=== PATIENT | female | born 2000 | race Two or more races ===

== ENCOUNTER 2024-01-01 12:52 | Emergency (ER) | payer MEDICAID, SELFPAY ==
[2024-01-01 13:21] VITALS: BP 116/78; PULSE 78; RESP 18; TEMP 36.6; O2SAT 98; BMI 30.9
--- NOTE | 2024-01-01 13:46 | PD.EDRME ---
Rapid Medical Screening Exam RME Arrival date/time: 01/01/24 12:52 23-year-old female sent over to the emergency department by her PCP for possible abnormal potassium and sodium. Patient is asymptomatic. I have greeted and performed a focused initial assessment of this patient. Initial appropriate labs ordered at this time. A comprehensive ED assessment and evaluation of the patient and analysis of all test and completion of medical decision making process will be conducted by additional ED provider. Chief Complaint: Recheck/Abnormal Lab/Rx Time Seen by Provider: 01/01/24 13:08 Vital signs: Vital Signs Temperature 98 F 01/01/24 13:21 Pulse Rate 78 01/01/24 13:21 Respiratory Rate 18 01/01/24 13:21 Blood Pressure 116/78 01/01/24 13:21 Pulse Oximetry (%) 98 01/01/24 13:21 Oxygen Delivery Method Room Air 01/01/24 13:21
[2024-01-01 14:31] LABS: Collection Type, Urine Clean Catch
[2024-01-01 14:34] LABS: Basophils % (Auto) 0 % (0-2.5); Eosinophils # (Auto) 0.1 Thou/mm3 (0.0-0.5); Eosinophils % (Auto) 1 % (0-10); Hematocrit 40.1 % (36.0-46.0); Immature Granulocytes % (Auto) 0 % (0-0); Immature Granulocytes Auto 0.02 Thou/mm3 (0.00-0.00); Lymphocytes # (Auto) 2.1 Thou/mm3 (1.0-4.8); Lymphocytes % (Auto) 25 % (10-50); Mean Corpuscular HGB Conc 32.4 g/dl (31.0-37.0); Mean Corpuscular Hemoglobin 26.4 pg (25.0-35.0); Mean Corpuscular Volume 81 fL (80-100); Monocytes # (Auto) 0.6 Thou/mm3 (0.0-0.8); Monocytes % (Auto) 8 % (0-12); Neutrophils # (Auto) 5.4 Thou/mm3 (1.8-7.7); Neutrophils % (Auto) 65 % (37-80); Nucleated Red Blood Cell % 0 /100 WBC (0); Platelet Count 336 Thou/mm3 (140-440); RDW Standard Deviation 39.3 fL (36.4-46.3); Red Blood Count 4.93 Miln/mm3 (4.00-5.20); White Blood Count 8.2 Thou/mm3 (3.6-11.0)
[2024-01-01 14:44] LABS: HCG Qualitative,Urine Negative
[2024-01-01 14:54] LABS: Alanine Aminotransferase 14 U/L (10-49); Albumin, Serum 4.7 gm/dL (3.5-5.0); Albumin/Globulin Ratio 1.6 (1.2-2.2); Alkaline Phosphatase 91 U/L (46-116); Anion Gap 2 (7-16); Aspartate Amino Transferase < 8 U/L (0-34); BUN/Creatinine Ratio 15 Ratio (12-20); Bilirubin,Total 0.4 mg/dL (0.3-1.2); Blood Urea Nitrogen 9 mg/dL (9-23); Calcium 9.7 mg/dL (8.3-10.6); Calcium (Corrected) 9.7 mg/dL (8.5-10.1); Carbon Dioxide 26.9 mMol/L (20.0-31.0); Chloride 107 mMol/L (98-107); Creatinine (Component) 0.6 mg/dL (0.6-1.3); Globulin 2.9 gm/dL (2.3-3.5); Glucose 86 mg/dL (74-106); Osmolality,Calculated 269 (275-295); Potassium 4.2 mMol/L (3.4-5.1); Sodium 136 mMol/L (136-145); Total Protein 7.6 gm/dL (5.7-8.2); eGFR > 60 See Note
[2024-01-01 14:55] LABS: Bacteria,Urine Rare; Bilirubin,Urine Negative (Negative); Blood,Urine Negative (Negative); Clarity,Urine Clear (Clear/Hazy); Color,Urine Yellow (Lt Yel-Yel); Glucose, Urine Negative (Negative); Hyaline Casts,Urine < 1 /hpf (0-1); Ketones,Urine Negative (Negative); Leukocyte Esterase,Urine Negative (Negative); Nitrite,Urine Negative (Negative); PH,Urine 6.5 (5.0-7.0); Protein,Urine Negative (Neg - Trace); RBC,Urine 5 /hpf (0-3); Specific Gravity,Urine 1.024 (1.001-1.035); Squamous Epithelial Cell,Urine 1 /hpf (0-5); Urobilinogen,Urine Negative mg/dL (0.0-1.0); WBC,Urine 1 /hpf (0-5)
--- NOTE | 2024-01-01 15:53 | PD.EDRECHK ---
ED Recheck Abnl Lab Rx-RME/HPI General Chief Complaint: Recheck/Abnormal Lab/Rx Stated Complaint: ABNORMAL LABS, SENT BY [facility] Time Seen by Provider: 01/01/24 13:08 Source: patient Arrival date/time: 01/01/24 12:52 This is a 23-year-old female who presents to the emergency department was sent over by her PCP for possible abnormal sodium and potassium levels on her labs on outpatient. Patient reports she had routine labs done outpatient 2 days ago and was sent here for redraw. Patient is asymptomatic no complaints. Mode of arrival: ambulatory RME / HPI RME / HPI narrative: 01/01/24 12:52 23-year-old female sent over to the emergency department by her PCP for possible abnormal potassium and sodium. Patient is asymptomatic. I have greeted and performed a focused initial assessment of this patient. Initial appropriate labs ordered at this time. A comprehensive ED assessment and evaluation of the patient and analysis of all test and completion of medical decision making process will be conducted by additional ED provider. Related Data Home Medications ?Medication ?Instructions ?Recorded ?Confirmed vitamins-iron fumarate 65 1 tab PO QAM 05/16/22 08/05/22 mg iron-folic acid 1 mg tablet Allergies Allergy/AdvReac Type Severity Reaction Status Date / Time No Known Allergies Allergy Verified 01/01/24 12:54 Review of Systems Review of Systems Systems Reviewed: All systems reviewed, normal except as documented Narrative Review of Systems: Gen: No fever, no chills, no weight loss EYES: No discharge, no visual changes, no pain HEENT: No ear pain, no congestion, no sore throat PULM: No shortness of breath, no cough, no congestion CV: No chest pain, no dyspnea on exertion, no palpitations GI: No nausea, no vomiting, no diarrhea, no pain, no constipation : No frequency, no urgency,? no dysuria Musc/skel: No joint pain, no back pain Skin: No rash? Psyc: No hallucinations, no depression Heme/Lymph: No easy bleeding or bruising tendencies Neuro: No weakness, no headache ED Exam Narrative Physical exam: General: Sittiing in Exam table in no acute distress, answering questions appropriately HENT: normocephalic, atraumatic, EOMI, PERRLA, moist mucous membranes Chest: chest wall is nontender Cardiac: regular rate and rhythm, normal S1 and S2, no murmurs, rubs, or gallops, capillary refill ?2 seconds Pulmonary: clear to auscultation bilaterally, no wheezing, crackles, or rhonchi Abdominal: active bowel sounds, soft, nontender, nondistended Neuro: A&OX3, CN II-XII intact, sensation grossly intact bilaterally in UE and LE. Skin: no rashes, no ecchymosis Ext: no lower extremity edema Course Quality Measures none Orders Category Date Time Status CBC Stat Lab 01/01/24 13:52 Completed CMP [Comprehensive Metabolic Panel] Stat Lab 01/01/24 13:52 Completed HCG Qualitative,Urine Stat Lab 01/01/24 14:22 Completed Urinalysis Stat Lab 01/01/24 14:22 Completed Vital Signs Vital signs: Vital Signs Temperature 98 F 01/01/24 13:21 Pulse Rate 78 01/01/24 13:21 Respiratory Rate 18 01/01/24 13:21 Blood Pressure 116/78 01/01/24 13:21 Pulse Oximetry (%) 98 01/01/24 13:21 Oxygen Delivery Method Room Air 01/01/24 13:21 Recheck / Abnormal Lab / Rx Patient data External records reviewed:: [facility] previous records Clinical information provided by:: patient Social determinants that could affect healthcare access:: none Patient has the following chronic illnesses:: no How is presenting disease/condition affected by chronic disease/condition?: no chronic disease Evaluation data The following diagnostics were reviewed and interpreted by me:: lab results Lab and/or radiology exams considered but not ordered:: no Interpretation Summary: All labs reviewed normal potassium, noted normal sodium. Medications / Prescriptions Medications or Prescriptions considered but not ordered:: No Medication administrations:: None Consultations Consultation(s) initiated? (list below): No Diagnosis Recheck Differential Diagnosis: encounter for medication refill, encounter for recheck of burn and encounter for removal of sutures Most likely diagnosis given after review of the tests above:: Laboratory recheck. Normal Admission Indicated Admission indicated?: not indicated Admission Request Was there a request for admission?: No Disposition Plan Disposition Plan: Discharge Discharge Attestation Discharge Attestation: The patient and all family members were given an opportunity to ask questions and understood the discharge instructions. Discharge instructions specifically effects, indications for sooner follow up or return to the emergency department, and the expected course of current diagnosis. Patient condition: Stable Discharge Plan Plan Patient Disposition: HOME (Self Care) Patient condition on transfer: Stable Prescriptions/Referrals Prescriptions/Med Rec: No Action vit-iron fum-folic ac 65 mg iron- 1 mg Tablet 1 tab PO QAM Referrals: Rosangela Joyner PA-C [Primary Care Provider] - In 1 week Problem List Clinical Impression: Abnormal laboratory test Patient/Caregiver Discharge Instructions Discharge Activity: activity as tolerated Additional Instructions: Your recheck labs are completely normal. Please follow-up with your doctor as directed. Print Language: Malawian Stand Alone Forms: Jessi Award Info., Patient Portal Info Letter PA/BUSINESS SERVICES INTERN Supervising Physician PA/WENDY Supervising Physician: Dr Coy
== END 2024-01-01 16:31 | disposition home or self-care (01) ==
PROVIDERS: Nurse Practitioner Primary Care; Emergency Provider Emergency Medicine; PCP Family Medicine
DX: R79.9 Abnormal finding of blood chemistry, unspecified (principal)
CPT/HCPCS: 36415; 80053; 81001; 81025; 85025; 99283

== ENCOUNTER 2024-08-20 18:23 | Observation (INO) | payer MEDICAID, SELFPAY ==
[2024-08-20] VITALS (32 sets, daily range): BP systolic 117–125; BP diastolic 67–70; PULSE 102–127; RESP 18–98; TEMP 37.3–38.4; O2SAT 88–100; BMI 35.9
[2024-08-20] MEDS: RINGERS LACTATED 1000 ML 1,000 ML 999 ML IV (19:05)
--- NOTE | 2024-08-20 19:20 | XR_ITS ---
Examination: Complete OB ultrasound greater than 14 weeks Date and time of exam: 2024 hours INDICATIONS: Back pain and pelvic pain beginning 4 days ago Findings: Viable intrauterine single fetus with single amniotic sac presentation transverse Cardiac motion 147 BPM Placenta posterior grade 2 Umbilical cord insertion seen Amniotic fluid index 22.3 cm spine maternal right Services 5.5 cm Ovaries obscured by the fetus. Composite estimated gestational age based on BPD, head circumference, abdominal circumference, femur length is 33 weeks 2 days Estimated weight 2094 g. Survey of intracranial anatomy, spinal anatomy, abdominal anatomy, four-chamber heart performed with no abnormalities identified. Impression: Viable intrauterine gestation transverse presentation.
[2024-08-20 19:34] LABS: Collection Type, Urine Clean Catch
[2024-08-20 19:45] LABS: Basophils # (Auto) 0.0 Thou/mm3 (0.0-0.2); Basophils % (Auto) 0 % (0-2.5); Eosinophils # (Auto) 0.1 Thou/mm3 (0.0-0.5); Eosinophils % (Auto) 1 % (0-10); Hematocrit 25.6 % (36.0-46.0); Immature Granulocytes Auto 0.11 Thou/mm3 (0.00-0.00); Lymphocytes # (Auto) 1.7 Thou/mm3 (1.0-4.8); Lymphocytes % (Auto) 15 % (10-50); Mean Corpuscular HGB Conc 31.3 g/dl (31.0-37.0); Mean Corpuscular Hemoglobin 22.5 pg (25.0-35.0); Mean Corpuscular Volume 72 fL (80-100); Monocytes # (Auto) 1.2 Thou/mm3 (0.0-0.8); Monocytes % (Auto) 10 % (0-12); Neutrophils # (Auto) 8.7 Thou/mm3 (1.8-7.7); Neutrophils % (Auto) 73 % (37-80); Nucleated Red Blood Cell # 0.00 Thou/mm3 (0.00-0.00); Nucleated Red Blood Cell % 0 /100 WBC (0); Platelet Count 323 Thou/mm3 (140-440); RDW Standard Deviation 39.7 fL (36.4-46.3); Red Blood Count 3.56 Miln/mm3 (4.00-5.20); White Blood Count 11.9 Thou/mm3 (3.6-11.0)
[2024-08-20 19:55] LABS: Hemoglobin 8.0 g/dL (12.0-16.0)
[2024-08-20 20:08] LABS: Alanine Aminotransferase < 7 U/L (10-49); Albumin, Serum 3.8 gm/dL (3.5-5.0); Albumin/Globulin Ratio 1.5 (1.2-2.2); Alkaline Phosphatase 115 U/L (46-116); Anion Gap 13 (7-16); Aspartate Amino Transferase < 8 U/L (0-34); BUN/Creatinine Ratio 14 Ratio (12-20); Bilirubin,Total 0.4 mg/dL (0.3-1.2); Blood Urea Nitrogen 7 mg/dL (9-23); Calcium 8.7 mg/dL (8.3-10.6); Calcium (Corrected) 8.9 mg/dL (8.5-10.1); Carbon Dioxide 21.3 mMol/L (20.0-31.0); Chloride 107 mMol/L (98-107); Creatinine (Component) 0.5 mg/dL (0.6-1.3); Estimated Creatinine Clearance 185.4 mL/min (>60); Globulin 2.6 gm/dL (2.3-3.5); Glucose 105 mg/dL (74-106); Osmolality,Calculated 279 (275-295); Potassium 3.6 mMol/L (3.4-5.1); Sodium 141 mMol/L (136-145); Total Protein 6.4 gm/dL (5.7-8.2); eGFR > 60 See Note
[2024-08-20 20:15] LABS: Influenza A Ag Negative; Influenza B Ag Negative
[2024-08-20 20:23] LABS: COVID-19 Antigen (In-House) Negative (Negative)
[2024-08-20 20:23] LABS: Bacteria,Urine 4+; Bilirubin,Urine Negative (Negative); Blood,Urine Negative (Negative); Clarity,Urine Clear (Clear/Hazy); Color,Urine Yellow (Lt Yel-Yel); Glucose, Urine Negative (Negative); Ketones,Urine 3+ (Negative); Leukocyte Esterase,Urine Positive (Negative); Nitrite,Urine Negative (Negative); PH,Urine 6.0 (5.0-7.0); Protein,Urine Trace (Neg - Trace); RBC,Urine 6 /hpf (0-3); Specific Gravity,Urine 1.024 (1.001-1.035); Squamous Epithelial Cell,Urine 4 /hpf (0-5); Urobilinogen,Urine 3.0 mg/dL (0.0-1.0); WBC,Urine 53 /hpf (0-5)
[2024-08-20] MEDS: RINGERS LACTATED 1000 ML 1,000 ML 125 ML IV (22:25)
[2024-08-20] MEDS: cefTRIAXone 1,000 MG in SODIUM CHLORIDE 0.9% (Popper) 50 ML 100 MG IV (22:40)
--- NOTE | 2024-08-20 23:59 | PD.LDHP ---
Documentation for date of: 08/20/24 OB Labor/Induct. HPI History of Present Illness Chief complaint: Flank pain, fevers, pelvic pressure : 2 Para: 1 Term pregnancies: 1 pregnancies: 0 Living children: 1 History of Abortions: Spontaneous and Elective: 0 History of Vaginal deliveries: 1 History of sections: No History of : No Date of last menstrual period: 12/22/23 BARBARA: 10/08/24 Gestational Age (weeks): 33 Gestational age based on last menstrual period: 34 History of present illness: Patient is a 23-year-old -0-0-1 at 33 weeks estimated gestational age with all care uncomplicated with Dr Zapata who presented to triage this evening reporting fevers, chills and back pain. She stated it hurt on her right flank when she took a deep breath. She stated she felt pretty bad on Thursday but by Thursday she felt better and started feeling poorly again . In triage, her temperature was 101 ?F orally. A white count on her CBC was not significantly elevated and she did not have a left shift. Her urine,however, had numerous white cells, positive leukocyte esterase ,and 3+ bacteria. On physical exam, the patient was extremely tender in her right flank. She was admitted with a presumptive diagnosis of pyelonephritis. History of Present Dating criteria: LMP confirmed by 1st trimester US Adequate Care: Yes Ultrasounds: normal mid trimester US Obstetrical complications: none Medical complications: other (Patient has a history of a clot gastric sleeve and is extremely anemic with a hemoglobin of 8) Narrative: The patient required iron infusions last Labs Maternal Blood Type: A Pos Labs: Unknown: RPR, Hepatitis B, Rubella Titre, HIV, Chlamydia, Gonorrhea, Herpes Type 1, Herpes Type 2, Group Beta Strep and Covid-19 Narrative: Patient has had regular care with Dr Zapata. Since it is a Thursday, and she is only 33 weeks , no records are available to review. Review of Systems Review of Systems Narrative Review of Systems: Patient reports low-grade fevers, chills, fatigue, body aches, lower uterine pressure, and right sided back pain. She has some mild nausea. No diarrhea. Past Medical History Surgical History SURGICAL: Negative Section Past Medical History Comments PMH COMMENT: Patient has a history of a gastric sleeve in the past. She has been anemic with her last requiring iron infusions. She has a history of an uncomplicated vaginal delivery. Meds Home Medications and Allergies Home Medications ?Medication ?Instructions ?Recorded ?Confirmed ?Type vitamins-iron fumarate 65 1 tab PO QAM 05/16/22 08/20/24 History mg iron-folic acid 1 mg tablet ferrous sulfate 325 mg (65 mg 325 mg PO BID 08/20/24 08/20/24 History iron) tablet (FeroSul) Allergies Allergy/AdvReac Type Severity Reaction Status Date / Time No Known Allergies Allergy Verified 08/20/24 23:19 OB Exam Physical Exam Vital signs: Temp Pulse Resp BP Pulse Ox 99.2 F 111 H 18 117/67 98 08/20/24 22:41 08/20/24 22:06 08/20/24 22:41 08/20/24 22:06 08/20/24 22:46 Constitutional Constitutional: mild distress Comments: Patient is alert uncomfortable in the bed. She is cooperative and answers danny questions appropriately. Fundus is firm and nontender a back exam reveals right flank tenderness no left flank tenderness extremities show no significant edema. Pelvic exam deferred as patient is not suarabh. Routine Abdominal Exam Abdominal: Present soft Detailed Labor and Delivery Exam Membranes: intact monitor accelerations: 10x10 monitor decelerations: None jail variability: Moderate (11-25) Contraction frequency (min): None OB Results Labs 08/20/24 19:05 08/20/24 19:05 Labs: Short CBC 08/20/24 Range/Units 19:05 WBC 11.9 H (3.6-11.0) Thou/mm3 Hgb 8.0 L (12.0-16.0) g/dL Hct 25.6 L (36.0-46.0) % Plt Count 323 (140-440) Thou/mm3 BMP 08/20/24 19:05 Sodium 141 Potassium 3.6 Chloride 107 Carbon Dioxide 21.3 BUN 7 L Creatinine 0.5 L Glucose 105 Calcium 8.7 Liver Function 08/20/24 Range/Units 19:05 Total Bilirubin 0.4 (0.3-1.2) mg/dL AST < 8 (0-34) U/L ALT < 7 L (10-49) U/L Alkaline Phosphatase 115 (46-116) U/L Albumin 3.8 (3.5-5.0) gm/dL Urine 08/20/ Range/Units 19:05 Urine Color Yellow (Lt Yel-Yel) Urine Clarity Clear (Clear/Hazy) Urine pH 6.0 (5.0-7.0) Ur Specific [place] 1.024 (1.001-1.035) Urine Protein Trace (Neg - Trace) Urine Glucose (UA) Negative (Negative) OB Assessment & Plan Assessment and Plan (1) H/O gastric sleeve: Status: Acute (2) Anemia affecting : Status: Acute Assessment and plan: Encourage p.o. iron intake. (3) Pyelonephritis affecting in third trimester: Status: Acute Assessment and plan: Send urine culture. Start empirically on1 gm Rocephin every 12 hours. (2) Anemia affecting Qualifiers: Trimester: third trimester Qualified Code(s): O99.013 - Anemia complicating , third trimester
[2024-08-21] VITALS (17 sets, daily range): BP systolic 83–120; BP diastolic 49–64; PULSE 78–111; RESP 18; TEMP 36.6–37.7; O2SAT 98
[2024-08-21] MEDS: ACETAMINOPHEN 500 MG TABLET 1000 MG PO ×3 (00:28→20:28)
[2024-08-21] MEDS: RINGERS LACTATED 1000 ML 1,000 ML 125 ML IV ×2 (07:49→18:56)
--- NOTE | 2024-08-21 10:33 | PD.LDPN ---
Documentation for date of: 08/21/24 OB Labor Progress Note Pain Control Pain control: tolerating well Comments: Patient is a 23-year-old -0-0-1 at 33 weeks admitted with a pyelonephritis. Overnight she required tylenol x 1. Her last fever was in triage close to midnight at 99 degrees. She always needs IV iron infusions. She is on IV Rocephin. She reports good movement, no contractions, no loss of fluids. She feels better than and when she was admitted. Urine culture is still pending. Pelvic Exam Amniotic membrane status: Intact Contractions Monitor mode: External Contraction frequency: None Contraction intensity: Mild Status status: Category l Assessment and Plan Plan OB labor note: continuous present management Comments: Will continue IV Rocephin until sensitivities are back. I also ordered IV iron today and tomorrow as patient has a history of glass gastric sleeve and is anemic.
[2024-08-21] MEDS: cefTRIAXone 1,000 MG in SODIUM CHLORIDE 0.9% (Popper) 50 ML 100 MG IV ×2 (10:40→22:24)
[2024-08-21] MEDS: FERRIC SOD GLUC INJ 125 MG in SODIUM CHLORIDE 0.9% 100 ML 110 MG IV (11:30)
[2024-08-22] VITALS (62 sets, daily range): BP systolic 107–118; BP diastolic 61–66; PULSE 85–116; RESP 18–20; TEMP 36.6–37.9; O2SAT 92–100
[2024-08-22 05:24] LABS: Basophils # (Auto) 0.0 Thou/mm3 (0.0-0.2); Basophils % (Auto) 0 % (0-2.5); Eosinophils # (Auto) 0.2 Thou/mm3 (0.0-0.5); Eosinophils % (Auto) 1 % (0-10); Hematocrit 24.2 % (36.0-46.0); Immature Granulocytes Auto 0.17 Thou/mm3 (0.00-0.00); Lymphocytes # (Auto) 1.8 Thou/mm3 (1.0-4.8); Lymphocytes % (Auto) 15 % (10-50); Mean Corpuscular HGB Conc 31.0 g/dl (31.0-37.0); Mean Corpuscular Hemoglobin 22.5 pg (25.0-35.0); Mean Corpuscular Volume 73 fL (80-100); Monocytes # (Auto) 1.2 Thou/mm3 (0.0-0.8); Monocytes % (Auto) 10 % (0-12); Neutrophils # (Auto) 8.5 Thou/mm3 (1.8-7.7); Neutrophils % (Auto) 71 % (37-80); Nucleated Red Blood Cell # 0.02 Thou/mm3 (0.00-0.00); Nucleated Red Blood Cell % 0 /100 WBC (0); Platelet Count 286 Thou/mm3 (140-440); RDW Standard Deviation 40.6 fL (36.4-46.3); Red Blood Count 3.33 Miln/mm3 (4.00-5.20); White Blood Count 11.9 Thou/mm3 (3.6-11.0)
[2024-08-22 05:25] LABS: Hemoglobin 7.5 g/dL (12.0-16.0)
[2024-08-22] MEDS: RINGERS LACTATED 1000 ML 1,000 ML 125 ML IV ×3 (05:26→21:19)
[2024-08-22] MEDS: ACETAMINOPHEN 500 MG TABLET 1000 MG PO (05:35)
--- NOTE | 2024-08-22 07:54 | ESPR_ITS ---
Documentation for date of: 08/22/24 FLAP MAKER Subjective Subjective Interval history: Patient is a 23-year-old -0-0-1 at 33 weeks estimated gestational age with all care uncomplicated with Dr Zapata who presented to triage this evening reporting fevers, chills and back pain. She stated it hurt on her right flank when she took a deep breath. She stated she felt pretty bad on Thursday but by Thursday she felt better and started feeling poorly again . In triage, her temperature was 101 ?F orally. A white count on her CBC was not significantly elevated and she did not have a left shift. Her urine,however, had numerous white cells, positive leukocyte esterase ,and 3+ bacteria. On physical exam, the patient was extremely tender in her right flank. She was admitted with a presumptive diagnosis of pyelonephritis. Exam Vital Signs Temp Pulse Resp BP Pulse Ox 100.3 F 99 18 118/62 100 08/22/24 05:35 08/22/24 05:31 08/22/24 05:32 08/22/24 05:31 08/22/24 04:31 Narrative Exam Patient feels better with less flank pain. She denies any contractions leaking or bleeding. She is tolerating a regular diet. She is voiding without difficulty. She is passing flatus. Routine Respiratory Exam Comments: Clear to auscultation bilaterally Routine Cardiovascular Exam Comments: Regular rate and rhythm Routine Abdominal Exam Comments: Gravid, nontender Routine Back/Spine/Pelvis Exam Comments: CVA tenderness bilaterally Urinary Catheter Management Cath placed during this visit: no FLAP MAKER - PN: Obj Data Labs 08/22/24 05:12 08/20/24 19:05 Labs: Laboratory Results - last 24 hr 08/22/24 05:12 WBC 11.9 H RBC 3.33 L Hgb 7.5 L Hct 24.2 L MCV 73 L MCH 22.5 L MCHC 31.0 RDW Std Deviation 40.6 Plt Count 286 D Neut % (Auto) 71 Lymph % (Auto) 15 [facility] % (Auto) 10 Eos % (Auto) 1 Baso % (Auto) 0 Neut # (Auto) 8.5 H Lymph # (Auto) 1.8 [facility] # (Auto) 1.2 H Eos # (Auto) 0.2 Baso # (Auto) 0.0 Immature Gran # (Auto) 0.17 H Absolute Nucleated RBC 0.02 H Immature Gran % 1 H Nucleated RBC % 0 FLAP MAKER - A/P Assessment and plan (1) H/O gastric sleeve: Status: Acute (2) Anemia affecting : Status: Acute (3) Pyelonephritis affecting in third trimester: Status: Acute Assessment and plan: Continue IV antibiotics and until afebrile for 24 hours Opioid analgesia as necessary Time Spent With Patient Time: Total time spent is greater than 50% in coordination of care (as documented) at patient's floor/unit and/or counseling patient: Time with patient: 25 - 35 minutes
[2024-08-22] MEDS: FERROUS SULF 325 MG TABLET PO ×2 (08:15→21:22)
[2024-08-22] MEDS: cefTRIAXone 1,000 MG in SODIUM CHLORIDE 0.9% (Popper) 50 ML 100 MG IV ×2 (08:15→21:22)
[2024-08-22] MEDS: PRENATAL VITAMIN/FE FUM/FA TABLET 1 TAB PO (08:15)
[2024-08-22] MEDS: FERRIC SOD GLUC INJ 125 MG in SODIUM CHLORIDE 0.9% 100 ML 110 MG IV (09:03)
[2024-08-22] MEDS: ZOLPIDEM 5 MG TABLET PO (21:19)
[2024-08-23 00:24] VITALS: BP 117/62; PULSE 88
[2024-08-23 00:30] VITALS: BP 117/62; PULSE 88; RESP 18; TEMP 37.1
[2024-08-23 04:04] VITALS: BP 110/59; PULSE 102; RESP 18; TEMP 36.9
[2024-08-23] MEDS: RINGERS LACTATED 1000 ML 1,000 ML 125 ML IV (05:59)
--- NOTE | 2024-08-23 08:49 | PD.GYNPROG ---
Documentation for date of: 08/23/24 BUILDING CONSTRUCTION TEACHER Subjective Subjective Interval history: Patient is a 23-year-old -0-0-1 at 33 weeks estimated gestational age with all care uncomplicated with Dr Zapata who presented to triage this evening reporting fevers, chills and back pain. She stated it hurt on her right flank when she took a deep breath. She stated she felt pretty bad on Thursday but by Thursday she felt better and started feeling poorly again . In triage, her temperature was 101 ?F orally. A white count on her CBC was not significantly elevated and she did not have a left shift. Her urine,however, had numerous white cells, positive leukocyte esterase ,and 3+ bacteria. On physical exam, the patient was extremely tender in her right flank. She was admitted with a presumptive diagnosis of pyelonephritis. Patient has not been afebrile for the last 24 hours. She is slightly tachycardic but the rest of her vital signs are within normal limits Exam Vital Signs Temp Pulse Resp BP Pulse Ox 98.5 F 102 H 18 110/59 L 100 08/23/24 04:04 08/23/24 04:04 08/23/24 04:04 08/23/24 04:04 08/22/24 20:00 Constitutional Constitutional: no acute distress Routine HEENT Exam Head: Present normocephalic and atraumatic Eye: Present EOMI and PERRL ENT: Present mucous membranes moist Routine Neck Exam Neck: Present supple and trachea midline Routine Respiratory Exam Respiratory: Present chest non-tender, lungs clear, normal breath sounds and no resp distress Routine Cardiovascular Exam Cardiovascular: Present RRR Routine Abdominal Exam Abdominal: Present soft and normoactive bowel sounds Routine Extremities Exam Extremities: Present full ROM Routine Skin Exam Skin: Present intact and dry Routine Neurological Exam Neurological: Present alert, oriented X3 and CN II-XII intact Routine Psychiatric Exam Psychiatric: Present normal affect and normal thought process Urinary Catheter Management Cath placed during this visit: no BUILDING CONSTRUCTION TEACHER - PN: Obj Data Labs 08/22/24 05:12 08/20/24 19:05 BUILDING CONSTRUCTION TEACHER - A/P Assessment and plan (1) H/O gastric sleeve: Status: Acute (2) Anemia affecting : Status: Acute (3) Pyelonephritis affecting in third trimester: Status: Acute Assessment and plan: Patient is now 24 hours afebrile. Plan to discharge home today with oral antibiotics to follow-up with Dr Zapata in 7 days Time Spent With Patient Time: Total time spent is greater than 50% in coordination of care (as documented) at patient's floor/unit and/or counseling patient: Time with patient: less than 15 minutes
--- NOTE | 2024-08-23 08:50 | ESDS_ITS ---
DS: Providers Provider Date of admission: 08/20/24 18:23 Primary care physician: Physician No Primary/Family Admitting Provider: Radha Summers MD ([facility]) Attending Provider on Admission: Kaushal Song MD Attending Provider on DC: Kaushal Song MD Discharging Provider: Kaushal Song MD DS: Diagnosis Discharge Diagnosis (1) Pyelonephritis affecting in third trimester: Status: Acute (2) Anemia affecting : Status: Acute (3) H/O gastric sleeve: Status: Acute Problem List Completed Was Problem List Reviewed/Reconciled?: Yes Summary/Hosp Course Brief History: Patient is a 23-year-old -0-0-1 at 33 weeks estimated gestational age with all care uncomplicated with Dr Zapata who presented to triage this evening reporting fevers, chills and back pain. She stated it hurt on her right flank when she took a deep breath. She stated she felt pretty bad on Thursday but by Thursday she felt better and started feeling poorly again . In triage, her temperature was 101 ?F orally. A white count on her CBC was not significantly elevated and she did not have a left shift. Her urine,however, had numerous white cells, positive leukocyte esterase ,and 3+ bacteria. On physical exam, the patient was extremely tender in her right flank. She was admitted with a presumptive diagnosis of pyelonephritis. Patient has not been afebrile for the last 24 hours. She is slightly tachycardic but the rest of her vital signs are within normal limits Time Spent with Patient Time attestation: Total time spent providing and/or coordinating discharge services: Exam Vital Signs Temp Pulse Resp BP Pulse Ox 98.5 F 102 H 18 110/59 L 100 08/23/24 04:04 08/23/24 04:04 08/23/24 04:04 08/23/24 04:04 08/22/24 20:00 Discharge Plan Plan Patient Disposition: HOME (Self Care) Patient condition on transfer: Stable Prescriptions/Referrals Prescriptions/Med Rec: New amoxicillin-pot clavulanate 875-125 mg tablet 1 tab PO BID 7 Days Qty: 14 0RF hydrocodone-acetaminophen 5-325 mg tablet 1 tab PO Q6H MDD 4 PRN (Reason: pain) 5 Days Qty: 20 0RF Continued ferrous sulfate [FeroSul] 325 mg (65 mg iron) tablet 325 mg PO BID Patient Comments: take 1 tablet by mouth twice a day vit-iron fum-folic ac 65 mg iron- 1 mg Tablet 1 tab PO QAM Referrals: Yemi Zapata MD [Physician] - No Primary/Family,Physician [Primary Care Provider] - Patient/Caregiver Discharge Instructions Meds to Beds: Yes Education Materials: Urinary Tract Infections in Women Print Language: Montenegrin Stand Alone Forms: Jessi Award Info., Patient Portal Info Letter, Work/Release Restrictions Discharge Order Discharge Orders: Discharge (Routine); Ordered 08/23/24 Ordered By: Kaushal Song Planned Discharge Date 08/23/24 (2) Anemia affecting Qualifiers: Trimester: third trimester Qualified Code(s): O99.013 - Anemia complicating , third trimester
[2024-08-23 09:24] VITALS: BP 111/66; PULSE 97; RESP 16; TEMP 37
[2024-08-23] MEDS: FERROUS SULF 325 MG TABLET PO (09:33)
[2024-08-23] MEDS: PRENATAL VITAMIN/FE FUM/FA TABLET 1 TAB PO (09:34)
[2024-08-23] MEDS: cefTRIAXone 1,000 MG in SODIUM CHLORIDE 0.9% (Popper) 50 ML 100 MG IV (09:34)
== END 2024-08-23 10:36 | disposition home or self-care (01) ==
PROVIDERS: Admitting Provider Obstetrics & Gynecology; Visit Provider Obstetrics & Gynecology
DX: O23.03 Infections of kidney in pregnancy, third trimester (principal); O99.013 Anemia complicating pregnancy, third trimester; D64.9 Anemia, unspecified; Z3A.33 33 weeks gestation of pregnancy; O99.891 Other specified diseases and conditions complicating pregnancy; R00.0 Tachycardia, unspecified
CPT/HCPCS: 36415; 59025; 59899; 76805; 80053; 81001; 85025; 87077; 87086; 87186; 87502; 87811; 96361; 96365; 96366; J0696; J2916; J7050; J7120; A9270

== ENCOUNTER 2024-09-05 09:00 | Outpatient (RCR) | payer MEDICAID, SELFPAY ==
[2024-08-24 09:30] VITALS: BP 113/72; PULSE 101; RESP 20; TEMP 36.4; O2SAT 98; BMI 36.9
[2024-08-24] MEDS: IRON SUCROSE CPLX INJ 20 MG/ML VIAL 5 ML 200 MG IVP (09:33)
[2024-08-24 09:56] VITALS: BP 123/79; PULSE 101; RESP 18; TEMP 36.4; O2SAT 97
[2024-08-26 09:12] VITALS: BMI 37.5
[2024-08-26 09:31] VITALS: BP 124/69; PULSE 94; RESP 18; TEMP 36.3; O2SAT 98
[2024-08-26] MEDS: IRON SUCROSE CPLX INJ 20 MG/ML VIAL 5 ML 200 MG IVP (09:42)
[2024-08-26 10:07] VITALS: BP 110/67; PULSE 88; RESP 18; TEMP 36.2; O2SAT 97
[2024-08-31 09:15] VITALS: BP 127/68; PULSE 86; RESP 12; TEMP 36.3; O2SAT 97; BMI 37.8
[2024-08-31] MEDS: IRON SUCROSE CPLX INJ 20 MG/ML VIAL 5 ML 200 MG IVP (09:57)
[2024-08-31 10:00] VITALS: BP 119/69; PULSE 83; RESP 12; TEMP 36.7; O2SAT 97
[2024-09-02 09:33] VITALS: BP 114/70; PULSE 92; RESP 16; TEMP 36.1; O2SAT 99; BMI 37.3
[2024-09-02] MEDS: IRON SUCROSE CPLX INJ 20 MG/ML VIAL 5 ML 200 MG IVP (09:48)
[2024-09-02 09:50] VITALS: BP 112/70; PULSE 86; RESP 14; TEMP 36.3; O2SAT 96
[2024-09-05 09:20] VITALS: BP 127/84; PULSE 91; RESP 14; TEMP 36.3; O2SAT 96; BMI 37.5
[2024-09-05] MEDS: IRON SUCROSE CPLX INJ 20 MG/ML VIAL 5 ML 200 MG IVP (09:44)
[2024-09-05 09:50] VITALS: BP 116/70; PULSE 95; RESP 15; TEMP 36.1; O2SAT 96
== END 2024-09-15 23:59 | disposition home or self-care (01) ==
LOC: SFLEX 09:00
PROVIDERS: Referring Provider Specialist; Visit Provider Specialist
DX: D50.8 Other iron deficiency anemias (principal); K90.41 Non-celiac gluten sensitivity
CPT/HCPCS: 96365; 96374; 96375; J1756

== ENCOUNTER 2024-10-10 07:59 | Inpatient (IN) | payer MEDICAID, SELFPAY ==
[2024-10-10] VITALS (132 sets, daily range): BP systolic 108–199; BP diastolic 53–129; PULSE 68–139; RESP 16–99; TEMP 36.6–37.3; O2SAT 87–100; BMI 37.6
[2024-10-10 08:39] LABS: ROM Kit Lot # 58102387
[2024-10-10 08:40] LABS: ROM Swab Mixed By: MEDIA1; Rupture of Fetal Membranes Negative (Negative); Swb Mxed in Solvent 1 min? Yes
--- NOTE | 2024-10-10 09:23 | XR_ITS ---
Examination: Biophysical profile, ultrasound Date and time of exam: October 10, 2024, 0956 hours INDICATIONS: Post dates Technique: Multiple transabdominal sonographic images of the pelvis abdomen obtained. Attention is directed to the breathing movement, gross body movement, amniotic fluid volume and tone. Findings: Amniotic fluid index 6.1 cm Total biophysical profile is 8 of 8. breathing movement is 2. Gross body movement is 2. tone is 2. Qualitative amniotic fluid volume is 2 Impression: Biophysical profile is 8 of 8.
[2024-10-10] MEDS: RINGERS LACTATED 1000 ML 1,000 ML 100 ML IV (12:40)
[2024-10-10 13:36] LABS: Basophils # (Auto) 0.0 Thou/mm3 (0.0-0.2); Basophils % (Auto) 0 % (0-2.5); Eosinophils # (Auto) 0.0 Thou/mm3 (0.0-0.5); Eosinophils % (Auto) 0 % (0-10); Hematocrit 38.8 % (36.0-46.0); Hemoglobin 12.5 g/dL (12.0-16.0); Immature Granulocytes Auto 0.05 Thou/mm3 (0.00-0.00); Lymphocytes # (Auto) 1.7 Thou/mm3 (1.0-4.8); Lymphocytes % (Auto) 16 % (10-50); Mean Corpuscular HGB Conc 32.2 g/dl (31.0-37.0); Mean Corpuscular Hemoglobin 26.4 pg (25.0-35.0); Mean Corpuscular Volume 82 fL (80-100); Monocytes # (Auto) 0.6 Thou/mm3 (0.0-0.8); Monocytes % (Auto) 6 % (0-12); Neutrophils # (Auto) 8.5 Thou/mm3 (1.8-7.7); Neutrophils % (Auto) 78 % (37-80); Nucleated Red Blood Cell # 0.00 Thou/mm3 (0.00-0.00); Nucleated Red Blood Cell % 0 /100 WBC (0); Platelet Count 281 Thou/mm3 (140-440); Red Blood Count 4.73 Miln/mm3 (4.00-5.20); White Blood Count 10.9 Thou/mm3 (3.6-11.0)
[2024-10-10 14:10] LABS: Syphilis Nonreactive (Nonreactive)
--- NOTE | 2024-10-10 15:20 | ESHP_ITS ---
Documentation for date of: 10/10/24 OB Labor/Induct. HPI History of Present Illness : 2 Para: 1 Term pregnancies: 1 pregnancies: 0 Living children: 1 History of Abortions: Spontaneous and Elective: 0 History of Vaginal deliveries: 1 History of sections: No History of : No Date of last menstrual period: 12/22/24 BARBARA: 10/08/24 Gestational age based on last menstrual period: -10 History of present illness: 23 yo IUP 40w2d by best dates. Active labor. Says she had leaking earlier today but amniosure was negative. RADHA 6.1. Reports regular contractions. No bleeding. Normal movement. Care at [facility]. Comments: PMHx: see records. History of Present Adequate Care: Yes Labs Labs: Positive: Rubella Titre, Negative: RPR, Hepatitis B, HIV, Chlamydia and Gonorrhea and Unknown: Herpes Type 1, Herpes Type 2, Group Beta Strep and Covid-19 Past Medical History Surgical History SURGICAL: Negative Section Meds Home Medications and Allergies Home Medications ?Medication ?Instructions ?Recorded ?Confirmed ?Type vitamins-iron fumarate 65 1 tab PO QAM 10/10/24 History mg iron-folic acid 1 mg tablet ferrous sulfate 325 mg (65 mg 325 mg PO BID 08/20/24 0 10/10/24 History iron) tablet (FeroSul) nitrofurantoin 100 mg PO Q12H 10/10/24 08/2 07/10 History monohydrate/macrocrystals 100 mg capsule (Macrobid) Allergies Allergy/AdvReac Type Severity Reaction Status Date / Time No Known Allergies Allergy Verified 10/10/24 09:58 OB Exam Physical Exam Vital signs: Temp Pulse Resp BP Pulse Ox 98.2 F 78 16 109/53 L 99 10/10/24 08:15 10/10/24 14:52 10/10/24 08:15 10/10/24 14:52 10/10/24 15:20 Routine HEENT Exam Comments: wnl Routine Respiratory Exam Comments: CTA B/L Routine Cardiovascular Exam Comments: RRR Routine Abdominal Exam Comments: Gravuid term size, EFW 7.5 lbs Detailed Labor and Delivery Exam Comments: See RN notes. Routine Extremities Exam Comments: Nontender Routine Skin Exam Comments: No gross rashes or lesions Routine Neurological Exam Comments: No deficet OB Results Labs 10/10/24 12:40 Labs: Short CBC 10/10/24 Range/Units 12:40 WBC 10.9 (3.6-11.0) Thou/mm3 Hgb 12.5 (12.0-16.0) g/dL Hct 38.8 (36.0-46.0) % Plt Count 281 (140-440) Thou/mm3 Impressions Impression: IUP 40w2d by best dates. Active Labor Anticipate In formed consent obtained. Patient aware of risks and complications of OVD and C/S and agrees with these modes of delivery if indicated.
[2024-10-10] MEDS: MINERAL OIL 30 ML UDC TOP (15:55)
[2024-10-10] MEDS: OXYTOCIN in NS 20 units 20 UNIT/1,000 ML BAG 125 UNIT IV (16:02)
--- NOTE | 2024-10-10 16:09 | PD.LDDS ---
DS: Providers Provider Date of admission: 10/10/24 07:59 Primary care physician: Physician No Primary/Family Admitting Provider: Yemi Zapata MD Attending Provider on Admission: Yemi Zapata MD Attending Provider on DC: Yemi Zapata MD Discharging Provider: Yemi Zapata MD DS: Diagnosis Problem List Completed Was Problem List Reviewed/Reconciled?: Yes Summary/Hosp Course Brief History: 23 yo IUP 40w2d by best dates. Active labor. Says she had leaking earlier today but amniosure was negative. RADHA 6.1. Reports regular contractions. No bleeding. Normal movement. Care at [facility]. Time Spent with Patient Time attestation: Total time spent providing and/or coordinating discharge services: Exam Vital Signs Temp Pulse Resp BP Pulse Ox 98.2 F 94 16 118/56 L 100 10/10/24 08:15 10/10/24 16:08 10/10/24 08:15 10/10/24 16:08 10/10/24 16:05 Discharge Plan Plan Patient Disposition: HOME (Self Care) Patient condition on transfer: Stable Prescriptions/Referrals Prescriptions/Med Rec: New ibuprofen 600 mg tablet 600 mg PO Q6H PRN (Reason: pain) Qty: 30 0RF Continued ferrous sulfate [FeroSul] 325 mg (65 mg iron) tablet 325 mg PO BID Patient Comments: take 1 tablet by mouth twice a day vit-iron fum-folic ac 65 mg iron- 1 mg Tablet 1 tab PO QAM Discontinued nitrofurantoin monohyd/m-cryst [Macrobid] 100 mg capsule 100 mg PO Q12H Patient Comments: Take 1 capsule by mouth once a day Referrals: No Primary/Family,Physician [Primary Care Provider] - Patient/Caregiver Discharge Instructions Discharge Activity: activity as tolerated Other Discharge Activity Instructions:: Follow up office with Primary OB in 6 weeks. Education Materials: Kick Counts, Antepartum Discharge Print Language: Turkmen Stand Alone Forms: Jessi Award Info., Patient Portal Info Letter, Work/Release Restrictions Planned Discharge Date 10/11/24
--- NOTE | 2024-10-10 17:25 | PD.LDDELS ---
Data (Rodriguez) Data Hx Section: No : 2 Term: 1 : 0 Livin Abortions: Spontaneous & Theraputic: 0 Delivery Data (Rodriguez) Labor Data Initiation of labor: Spontaneous Induction/Augmentation Agent: None ROM date: 10/10/24 ROM time: 04:00 Amniotic membrane rupture type: Spontaneous Amniotic fluid description: Clear Delivery Data EDC: 10/08/24 EDC calculated by:: LMP/early US confirmation Onset of labor date: 10/10/24 Onset of labor time: 11:00 Complete dilation date: 10/10/24 Complete dilation time: 15:44 [place] delivery date: 10/10/24 [place] delivery time: 15:58 Gestational age (weeks): 40 Gestational age (days): 2 Placenta delivery date: 10/10/24 Placenta delivery time: 16:02 Stage 1 total time: Labor - Stage 1 Duration 4 hours and 44 minutes Delivered by: GEILING Delivery nurse: CASSANDRA Singer nurse: SHERRI Enciso [employer] Supervisor at delivery: No Support person(s) at delivery: FOB Other staff at delivery: Florencio NUGENT STUDENT GURDESHAUN Delivery Method Delivery method: Normal Vaginal Delivery Presentation: Vertex position: OA Anesthesia Type Anesthesia Type: Epidural Placenta Placenta delivery description: Spontaneous Cord blood sent to lab: Yes cord blood collection: Cord Blood Type Episiotomy Episiotomy description: None EBL Estimated blood loss (ml): 200 Umbilical Cord cord description: 3 Vessels, Nuchal Cord and True Knot Complications Complications: None Data (Rodriguez) [place] Data order: 1 's gender: Male weight (gms): 8 lb 9.568 oz Weight (pounds): 8 lbs and 9.6 ozs 1 minute: 9 5 minutes: 9
[2024-10-10 23:01] LABS: Basophils # (Auto) 0.0 Thou/mm3 (0.0-0.2); Basophils % (Auto) 0 % (0-2.5); Eosinophils # (Auto) 0.0 Thou/mm3 (0.0-0.5); Eosinophils % (Auto) 0 % (0-10); Hematocrit 31.8 % (36.0-46.0); Hemoglobin 10.4 g/dL (12.0-16.0); Immature Granulocytes Auto 0.08 Thou/mm3 (0.00-0.00); Lymphocytes # (Auto) 2.1 Thou/mm3 (1.0-4.8); Lymphocytes % (Auto) 17 % (10-50); Mean Corpuscular HGB Conc 32.7 g/dl (31.0-37.0); Mean Corpuscular Hemoglobin 26.7 pg (25.0-35.0); Mean Corpuscular Volume 82 fL (80-100); Monocytes # (Auto) 1.0 Thou/mm3 (0.0-0.8); Monocytes % (Auto) 8 % (0-12); Neutrophils # (Auto) 9.6 Thou/mm3 (1.8-7.7); Neutrophils % (Auto) 74 % (37-80); Nucleated Red Blood Cell # 0.00 Thou/mm3 (0.00-0.00); Nucleated Red Blood Cell % 0 /100 WBC (0); Platelet Count 255 Thou/mm3 (140-440); Red Blood Count 3.89 Miln/mm3 (4.00-5.20); White Blood Count 12.9 Thou/mm3 (3.6-11.0)
[2024-10-11 00:19] VITALS: BP 106/66; PULSE 82; RESP 20; TEMP 36.8; O2SAT 97
[2024-10-11] MEDS: ACETAMINOPHEN 325 MG TABLET 650 MG PO (00:33)
[2024-10-11 04:02] VITALS: BP 110/73; PULSE 76; RESP 18; TEMP 36.8; O2SAT 97
[2024-10-11 07:30] VITALS: BP 119/78; PULSE 81; RESP 18; TEMP 36.7; O2SAT 97
--- NOTE | 2024-10-11 10:42 | PD.LDPPPRG ---
Subjective Subjective Interval history: Delivery type: Patient doing well this morning. No acute complaints. Ambulating, tolerating p.o. and voiding without difficulty. HTN/Pre-Eclampsia screen: No chest pain, shortness of breath, headache, visual changes, epigastric or right upper quadrant pain. Breast-feeding, lochia diminishing. Bowel: Flatus+/ BM+ Exam Vital Signs Temp Pulse Resp BP Pulse Ox O2 Del Method 98.0 F 81 18 119/78 97 Room Air 10/11/24 07:30 10/11/24 07:30 10/11/24 07:30 10/11/24 07:30 10/11/24 07:30 10/11/24 07:30 Constitutional Constitutional: no acute distress Routine HEENT Exam Head: Present normocephalic and atraumatic Eye: Present EOMI and PERRL ENT: Present mucous membranes moist Routine Neck Exam Neck: Present supple and trachea midline Routine Respiratory Exam Respiratory: Present chest non-tender, lungs clear, normal breath sounds and no resp distress Routine Cardiovascular Exam Cardiovascular: Present RRR Routine Abdominal Exam Abdominal: Present soft and normoactive bowel sounds Routine Extremities Exam Extremities: Present full ROM Routine Skin Exam Skin: Present intact, dry and warm Routine Neurological Exam Neurological: Present alert, oriented X3 and CN II-XII intact Routine Psychiatric Exam Psychiatric: Present normal affect and normal thought process Objective Labs 10/10/24 22:24 Labs: Laboratory Results - last 24 hr 10/10/24 10/10/24 12:40 22:24 WBC 10.9 12.9 H RBC 4.73 3.89 L Hgb 12.5 10.4 L D Hct 38.8 31.8 L MCV 82 82 MCH 26.4 26.7 MCHC 32.2 32.7 RDW Std Deviation TNP TNP Plt Count 281 255 Neut % (Auto) 78 74 Lymph % (Auto) 16 17 [place] % (Auto) 6 8 Eos % (Auto) 0 0 Baso % (Auto) 0 0 Neut # (Auto) 8.5 H 9.6 H Lymph # (Auto) 1.7 2.1 [place] # (Auto) 0.6 1.0 H Eos # (Auto) 0.0 0.0 Baso # (Auto) 0.0 0.0 Immature Gran # (Auto) 0.05 H 0.08 H Absolute Nucleated RBC 0.00 0.00 Immature Gran % 1 H 1 H Nucleated RBC % 0 0 Syphilis Serology Nonreactive Blood Type A Positive Antibody Screen NEGATIVE Blood Bank Wristband ID Yes Assessment & Plan Problem List (1) Pyelonephritis affecting in third trimester: Status: Acute (2) H/O gastric sleeve: Status: Acute (3) Vaginal delivery: Status: Acute Assessment and plan: PPD/POD#1 1. Continue routine care 2. Transition to PO meds. 3. Encourage to ambulate/ breast-feed 4. Anticipate discharge home today. Time Spent With Patient Time: Total time spent is greater than 50% in coordination of care (as documented) at patient's floor/unit and/or counseling patient:
--- NOTE | 2024-10-11 10:43 | PD.LDDS ---
DS: Providers Provider Date of admission: 10/10/24 12:00 Primary care physician: Physician No Primary/Family Admitting Provider: Yemi Zapata MD Attending Provider on Admission: Kaushal Song MD Consults: 10/10/24 17:56 Referral Routine Comment: Attending Provider on DC: Kaushal Song MD Discharging Provider: Kaushal Song MD DS: Diagnosis Discharge Diagnosis (1) Vaginal delivery: Status: Acute (2) H/O gastric sleeve: Status: Acute (3) (normal spontaneous vaginal delivery): Status: Acute Problem List Completed Was Problem List Reviewed/Reconciled?: Yes Summary/Hosp Course Brief History: 23 yo IUP 40w2d by best dates. Active labor. Says she had leaking earlier today but amniosure was negative. RADHA 6.1. Reports regular contractions. No bleeding. Normal movement. Care at [facility]. Peripartum Data Delivery Method: Normal Vaginal Delivery Episiotomy Description: None Time Spent with Patient Time attestation: Total time spent providing and/or coordinating discharge services: Exam Vital Signs Temp Pulse Resp BP Pulse Ox O2 Del Method 98.0 F 81 18 119/78 97 Room Air 10/11/24 07:30 10/11/24 07:30 10/11/24 07:30 10/11/24 07:30 10/11/24 07:30 10/11/24 07:30 Discharge Plan Plan Patient Disposition: HOME (Self Care) Patient condition on transfer: Stable Prescriptions/Referrals Prescriptions/Med Rec: New ibuprofen 600 mg tablet 600 mg PO Q6H PRN (Reason: pain) Qty: 30 0RF Continued ferrous sulfate [FeroSul] 325 mg (65 mg iron) tablet 325 mg PO BID Patient Comments: take 1 tablet by mouth twice a day vit-iron fum-folic ac 65 mg iron- 1 mg Tablet 1 tab PO QAM Discontinued nitrofurantoin monohyd/m-cryst [Macrobid] 100 mg capsule 100 mg PO Q12H Patient Comments: Take 1 capsule by mouth once a day Referrals: Kaushal Song MD [Physician] - No Primary/Family,Physician [Primary Care Provider] - Patient/Caregiver Discharge Instructions Meds to Beds: Yes Discharge Activity: activity as tolerated Other Discharge Activity Instructions:: Schedule an appointment with your ob doctor in 3-6 weeks Education Materials: After a Vaginal , After Delivery Concerns, : Caring for Yourself Print Language: Greek Stand Alone Forms: Jessi Award Info., Patient Portal Info Letter, Work/Release Restrictions Discharge Order Discharge Orders: Discharge (Routine); Ordered 10/11/24 Ordered By: Kaushal Song Planned Discharge Date 10/11/24
[2024-10-11 11:15] VITALS: BP 107/62; PULSE 76; RESP 18; TEMP 36.7; O2SAT 98
[2024-10-11 15:15] VITALS: BP 108/66; PULSE 81; RESP 17; TEMP 37; O2SAT 98
== END 2024-10-11 16:42 | disposition home or self-care (01) | DRG 560 ==
LOC: S4SX 17:10 → S4NX 10-11 08:12 → S4SX 10-11 08:58
PROVIDERS: Admitting Provider Specialist; Visit Provider Obstetrics & Gynecology
DX: O48.0 Post-term pregnancy (principal); O69.81X0 Labor and delivery complicated by cord around neck, without compression, not applicable or unspecified; O69.2XX0 Labor and delivery complicated by other cord entanglement, with compression, not applicable or unspecified; O99.843 Bariatric surgery status complicating pregnancy, third trimester; Z37.0 Single live birth; Z3A.40 40 weeks gestation of pregnancy
CPT/HCPCS: 36415; 59025; 76819; 84112; 85025; 86780; 86850; 86900; 86901; J2590; J2795; J7120; A9270